=== PATIENT | male | born 1985 ===

== ENCOUNTER 2023-01-10 09:59 | Outpatient (CLI) | payer OTHER ==
[~2023-01-10 09:59] MED LIST: GADOBUTROL 10 MMOL/10 ML VIAL ONE
[2023-01-10] MEDS: GADOBUTROL 10 MMOL/10 ML VIAL IVP ONE (12:35)
--- NOTE | 2023-01-10 19:09 | MRI Report ---
PROCEDURE: BRAIN W/WO INDICATIONS: HEADACHE CONTRAST: Gadavist 9.7ml TECHNIQUE: Noncontrast axial T1 spin echo, axial T2 fast spin echo, sagittal and axial FLAIR, coronal T2 fast sp in echo, axial gradient echo, axial diffusion and ADC through the brain. After the administration of contrast, axial and coronal T1 spin echo with fat saturation through the brain. COMPARISON: None. FINDINGS: Image quality: Excellent. CSF spaces: Basal cisterns are patent. No extra-axial fluid collections. Ventricles are normal in size and shape. Brain: No midline shift. No intracranial bleeds or masses. No abnormal intracranial enhancement. There is cerebral volume loss for age. There is periventricular white matter chronic small vessel is chemic change. The brainstem appears normal. Diffusion-weighted images demonstrate no acute ischemi c insults. No chronic ischemic insults. Normal intravascular flow voids are present. Skull and face: Calvarial marrow is normal in signal. Orbits appear normal. Sinuses: Sinuses and mastoids appear clear. IMPRESSION: A cause of headache cannot be seen on these images. No masses or abnormal enhancement can be seen. Reviewed by: Arcadio Tristan MD on 01/10/2023 6:07 PM DANUTA Approved by: Arcadio Tristan MD on 01/10/2023 6:07 PM DANUTA Station ID: [id number]
== END 2023-01-10 10:00 | disposition home or self-care (01) ==
LOC: DI 09:59
PROVIDERS: ATTEND Student in an Organized Health Care Education/Training Program
DX: G44.209 Tension-type headache, unspecified, not intractable (principal)
CPT/HCPCS: 70553; A9585